=== PATIENT | female | born 1990 ===

== ENCOUNTER → 2017-02-16 | Outpatient (CLI) | payer MEDICAID | LOC: SLR 11:00 | PROVIDERS: ATTEND Specialist | DX: G47.30 Sleep apnea, unspecified (principal); E66.9 Obesity, unspecified | CPT/HCPCS: G0399 ==

== ENCOUNTER 2017-03-20 11:00 | Outpatient (CLI) | payer MEDICAID | END 2017-03-20 11:01 | disposition home or self-care (01) | LOC: SLR 11:00 | PROVIDERS: ATTEND Specialist | DX: G47.33 Obstructive sleep apnea (adult) (pediatric) (principal) | CPT/HCPCS: 95811 ==